=== PATIENT | female | born 1970 | race African-American/Black ===

== ENCOUNTER 2019-02-05 20:20 | Emergency (ER) | payer SELFPAY ==
[~2019-02-05] VITALS: Ht 170.2 cm; Wt 82.0 kg
[2019-02-05] MEDS ORDERED: KETOROLAC 60MG/2ML VIAL IM STA (22:35)
[2019-02-06 00:25] VITALS: BP 148/77
== END 2019-02-06 00:31 | disposition home or self-care (01) ==
LOC: ER 20:20
DX: M54.2 Cervicalgia (principal); M79.10 Myalgia, unspecified site; V89.2XXA Person injured in unspecified motor-vehicle accident, traffic, initial encounter; Y93.89 Activity, other specified; Y92.89 Other specified places as the place of occurrence of the external cause; Y99.8 Other external cause status
CPT/HCPCS: 72125; 96372; 99284; J1885